=== PATIENT | female | born 1970 | race Caucasian/White ===

== ENCOUNTER 2017-01-30 08:53 | Outpatient (CLI) | payer BC ==
--- NOTE | 2017-01-31 14:57 | Mammography Report ---
DIGITAL SCREENING MAMMOGRAM: 01/30/2017 CLINICAL INDICATION: A 46-year-old with history of benign left breast biopsy for screening. COMPARISON: 08/2011 TECHNIQUE: Routine CC and MLO projections were obtained of the breasts as well as bilateral laterall y exaggerated craniocaudal views. FINDINGS: The breasts again demonstrate heterogeneously dense fibroglandular parenchyma bilaterally. Post-biopsy changes in the left breast are stable. Punctate, typically benign calcifications are p resent. No suspicious masses, clustered microcalcifications, or regions of architectural distortion are identified. IMPRESSION: BENIGN FINDINGS. RECOMMENDATION: Routine annual screening unless otherwise clinically indicated. BIRADS CATEGORY 2 - BENIGN FINDINGS. STANDARD QUALIFYING STATEMENTS 1. This examination was reviewed with the aid of Computer-Aided Detection (CAD). 2. A negative or benign imaging report should not delay biopsy if clinically suspicious findings are present. Consider surgical consultation if warranted. More than 5% of cancers are not identified by i maging. 3. Dense breasts may obscure an underlying neoplasm. JOB #: [id number] EXT JOB #:[id number]
== END 2017-01-30 08:54 | disposition home or self-care (01) ==
LOC: DI.N 08:53
PROVIDERS: ATTEND Internal Medicine
DX: Z12.31 Encounter for screening mammogram for malignant neoplasm of breast (principal)
CPT/HCPCS: 77067

== ENCOUNTER 2018-07-02 09:33 | Emergency (ER) | payer OTHER, BC ==
[2018-07-02] MEDS ORDERED: ONDANSETRON ODT 4 MG TABLET TL STA (10:38)
--- NOTE | 2018-07-02 10:45 | ED Physician Documentation ---
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 She complains of pain at the base of her neck, and has had nausea and dry heaves. She reports global headache. Her nausea and headache are worse with movement. She denies numbness or weakness. She reports a history of a similar episode years ago, also by getting hit in the neck with a soccer ball. She denies any other injuries. Review of Systems Constitutional: denies: Fever Eyes: denies: Decreased vision Ears: denies: Tinnitus/ringing Nose: denies: Congestion Throat: denies: Sore throat Cardiac: denies: Chest pain / pressure Respiratory: denies: Dyspnea, Cough GI: reports: Nausea, Vomiting (dry heaves). denies: Abdominal Pain : denies: Dysuria, Incontinent Skin: denies: Rash, Abrasion (s) Musculoskeletal: reports: Neck pain. denies: Extremity pain Neurologic: reports: Headache. denies: Focal weakness, Numbness PD PAST MEDICAL HISTORY - Past Medical History Past Medical History: Yes Cardiovascular: None Respiratory: Other Neuro: None, Head injury Endocrine/Autoimmune: None GI: None WHITESMITH: None : None HEENT: None Psych: None Musculoskeletal: None Derm: None - Past Surgical History Past Surgical History: Yes /WHITESMITH: Hysterectomy HEENT: Tonsil/Adenoidectomy - Present Medications Home Medications: Ambulatory Orders Medication Instructions Recorded Confirmed No Known Home Medications 07/02/18 07/02/18 - Allergies Allergies/Adverse Reactions: Allergies Allergy/AdvReac Type Severity Reaction Status Date / Time No Known Drug Allergies Allergy Verified 07/02/18 09:40 - Social History Does the pt smoke?: No Smoking Status: Never smoker Does the pt drink ETOH?: Yes ETOH Use: Wine Does the pt have substance abuse?: No - Immunizations Immunizations are current?: No Immunizations: TDAP >10years/unknown - POLST Patient has POLST: No PD ED PE NORMAL - Vitals Vital signs reviewed: Yes (normal) - General General: Alert and oriented X 3, Well developed/nourished - HEENT HEENT: Atraumatic, PERRL, EOMI, Ears normal, Pharynx benign - Neck Neck: No bony TTP, Other (There is tenderness to palpation in the paracervical musculature bilaterally, more in the lower cervical area. No tenderness to palpation along the spinous processes.) - Cardiac Cardiac: RRR, No murmur - Respiratory Respiratory: No respiratory distress, Clear bilaterally - Abdomen Abdomen: Soft, Non tender - Back Back: No CVA TTP, No spinal TTP - Derm Derm: No rash - Extremities Extremities: No edema, No calf tenderness / cord - Neuro Neuro: Alert and oriented X 3, No motor deficit, No sensory deficit Results - Vitals Vitals: Vital Signs - 24 hr 07/02/18 07/02/18 09:38 12:16 Temperature 36.4 C L 36.7 C Heart Rate 57 L 61 Respiratory 15 12 Rate Blood Pressure 131/68 H 114/52 L O2 Saturation 100 99 Oxygen O2 Source Room air PD MEDICAL DECISION MAKING - ED course Complexity details: reviewed results, re-evaluated patient, considered differential, d/w patient, other (An L&I form was completed.) ED course: The patient's presentation is significant for contusion to the neck, with associated headache and neck pain. CT scans of the head and cervical spine reveal no intracranial or bony abnormality. Treatment in the emergency department included administration of ibuprofen 800 mg orally, and Zofran 4 mg sublingually. This relieved the patient's nausea, and improved her headache. I discussed with her the expected course of injury, symptomatic treatment and outpatient follow-up, as well as potentially worrisome signs or symptoms that should prompt reevaluation in the emergency department. An L&I form was completed. Departure - Departure Disposition: 01 Home, Self Care Clinical Impression: Neck contusion Qualifiers: Encounter type: initial encounter Qualified Code(s): S10.93XA - Contusion of unspecified part of neck, initial encounter Headache Qualifiers: Headache type: post-traumatic Headache chronicity pattern: acute headache Condition: Stable Instructions: ED Sprain Strain Neck Follow-Up: Svetlana Galarza PA-C [Primary Care Provider] - Comments: You can take ibuprofen, up to 800 mg 3 times daily. Guide to activity level. Follow-up with your primary physician within 1 to 2 weeks. Call to schedule an appointment. Return to the emerge department if you develop increasing neck pain, increasing headache, persistent vomiting, or otherwise worsening symptoms. Forms: Activity restrictions Discharge Date/Time: 07/02/18 12:20
--- NOTE | 2018-07-02 11:49 | CT Report ---
Reason: Head injury with nausea/vomiting Procedure Date: 07/02/2018 Accession Number: [id number] / [id number] Procedure: CT - HEAD WO CPT Code: FULL RESULT: EXAM: CT HEAD. CT SCAN OF THE CERVICAL SPINE. EXAM DATE: 07/02/2018 11:32 AM. CLINICAL HISTORY: Head injury with nausea/vomiting. COMPARISON: CERVICAL SPINE W/O 07/02/2018 11:26 AM. TECHNIQUE: Noncontrast axial sections through the head and cervical spine. Reformats: Sagittal and coronal of the head, coronal and sagittal of the cervical spine. In accordance with CT protocol optimization, one or more of the following dose reduction techniques were utilized for this exam: automated exposure control, adjustment of mA and/or KV based on patient size, or use of iterative reconstructive technique. FINDINGS CT HEAD: Parenchyma: No intraparenchymal hemorrhage. No evidence of mass, midline shift. Gilbert-white differentiation is distinct. Extraaxial Spaces: Normal for age. No subdural or epidural collections identified. Ventricles: Normal in size and position. Sinuses and orbits: Imaged paranasal sinuses, orbits, and mastoids show no significant abnormality. Bones: No evidence of fracture or calvarial defect. Other: None. FINDINGS CT CERVICAL SPINE: Alignment: Normal. No scoliosis or spondylolisthesis. Bones: No fracture or bone lesion. Interspace Levels/Facets: C1-C2: Unremarkable. C2-C3: Unremarkable. C3-C4: Unremarkable. C4-C5: Unremarkable. C5-C6: Mild loss of disk space height with endplate spurring. C6-C7: Unremarkable. C7-T1: Unremarkable. Spinal Canal: Normal. Musculature: Normal. No fatty atrophy. Other: The paravertebral and prevertebral soft tissues are unremarkable. The lung apices demonstrates minimal biapical scarring. IMPRESSION: Head CT: Negative. Cervical Spine CT: Negative. RADIA
--- NOTE | 2018-07-02 11:50 | CT Report ---
Reason: Neck injury in gym class. Procedure Date: 07/02/2018 Accession Number: [id number] / [id number] Procedure: CT - CERVICAL SPINE WO CPT Code: FULL RESULT: EXAM: CT HEAD. CT SCAN OF THE CERVICAL SPINE. EXAM DATE: 07/02/2018 11:32 AM. CLINICAL HISTORY: Head injury with nausea/vomiting. COMPARISON: CERVICAL SPINE W/O 07/02/2018 11:26 AM. TECHNIQUE: Noncontrast axial sections through the head and cervical spine. Reformats: Sagittal and coronal of the head, coronal and sagittal of the cervical spine. In accordance with CT protocol optimization, one or more of the following dose reduction techniques were utilized for this exam: automated exposure control, adjustment of mA and/or KV based on patient size, or use of iterative reconstructive technique. FINDINGS CT HEAD: Parenchyma: No intraparenchymal hemorrhage. No evidence of mass, midline shift. Gilbert-white differentiation is distinct. Extraaxial Spaces: Normal for age. No subdural or epidural collections identified. Ventricles: Normal in size and position. Sinuses and orbits: Imaged paranasal sinuses, orbits, and mastoids show no significant abnormality. Bones: No evidence of fracture or calvarial defect. Other: None. FINDINGS CT CERVICAL SPINE: Alignment: Normal. No scoliosis or spondylolisthesis. Bones: No fracture or bone lesion. Interspace Levels/Facets: C1-C2: Unremarkable. C2-C3: Unremarkable. C3-C4: Unremarkable. C4-C5: Unremarkable. C5-C6: Mild loss of disk space height with endplate spurring. C6-C7: Unremarkable. C7-T1: Unremarkable. Spinal Canal: Normal. Musculature: Normal. No fatty atrophy. Other: The paravertebral and prevertebral soft tissues are unremarkable. The lung apices demonstrates minimal biapical scarring. IMPRESSION: Head CT: Negative. Cervical Spine CT: Negative. RADIA
[2018-07-02] MEDS ORDERED: IBUPROFEN 800 MG TABLET PO STA (11:56)
[2018-07-02 12:17] VITALS: BP 114/52
== END 2018-07-02 12:20 | disposition home or self-care (01) ==
LOC: ED 09:33
DX: S10.83XA Contusion of other specified part of neck, initial encounter (principal); W21.02XA Struck by soccer ball, initial encounter; Y93.89 Activity, other specified; Y92.219 Unspecified school as the place of occurrence of the external cause; Y99.0 Civilian activity done for income or pay; G44.319 Acute post-traumatic headache, not intractable; R11.2 Nausea with vomiting, unspecified
CPT/HCPCS: 1040M; 70450; 72125; 99283; A9270; Q0162

== ENCOUNTER 2020-08-23 21:19 | Emergency (ER) | payer BC ==
--- OUTSIDE RECORDS SUMMARY | 2020-08-23 21:22 | EXTERNAL MEDICAL SUMMARY RPT | Continuity of Care Document ---
:1970 Demographics Phone Unavailable Preferred Language Finnish Marital Status Unknown Anabaptist Affiliation Unknown Race Unknown Ethnic Group Unknown Author Organization [place] Address [address] [phone] Phone Care Team Providers Name Role Phone MD Unavailable Unavailable Allergies Encounters Medications date description facility 20200823 CELECOXIB [facility] All 20200823 SULFAMETHOXAZOLE-TRIMETHOPRIM All 20200823 MELOXICAM All 20200823 SULFAMETHOXAZOLE-TRIMETHOPRIM All 20200823 MELOXICAM All 20200823 CELECOXIB CAP[facility] All Problems date description facility 20200823 Tobacco smoking status [facility] All 20200823 Never smoker All 20200823 Details of drug misuse behavior All 20200823 Cellulitis, unspecified All 20200823 Cellulitis All 20200823 Cellulitis and abscess of unspecified s ites All 20200823 Alcohol use All Results Vital Signs date measurement value source 20200823 weight_standard 156.4 lb 20200823 weight_metric 70.94 kg 20200823 temperature_standard 97.3 F 20200823 temperature_metric 36.28 C 20200823 respiration_rate 14 /min 20200823 height_standard 70 in 20200823 height_metric 177.8 cm 20200823 heart_rate 67 /min 20200823 BP_systolic 119 mm[Hg] 20200823 BP_diastolic 70 mm[Hg] 20200823 BMI 22.52 kg/m2
--- OUTSIDE RECORDS SUMMARY | 2020-08-23 21:52 | EXTERNAL MEDICAL SUMMARY RPT | Continuity of Care Document ---
:1970 Demographics Phone Unavailable Preferred Language Stateless Marital Status Unknown Alevism Affiliation Unknown Race Unknown Ethnic Group Unknown Author Organization [facility] Address [address] [phone] Phone Care Team Providers Name Role Phone [...]
[2020-08-23] MEDS ORDERED: LIDOCAINE 1% 2 ML VIAL MC ONE (23:08)
[2020-08-23] MEDS ORDERED: DEXAMETHASONE 10 MG/ML VIAL PO STA (23:08)
[2020-08-23] MEDS ORDERED: CHERRY SYRUP 10 ML UDC PO ONE (23:08)
[2020-08-23] MEDS ORDERED: KETOROLAC 60 MG/2 ML VIAL IM STA (23:08)
[2020-08-23] MEDS ORDERED: cefTRIAXone 1 GM VIAL IM STA (23:08)
--- NOTE | 2020-08-23 23:11 | ED Physician Documentation ---
History of Present Illness - Stated complaint Stated Complaint: L ARM INFECTION - Chief complaint Chief Complaint: Wound - History obtained from History obtained from: Patient - History of Present Illness Timing: Yesterday - Additonal information Additional information: 49-year-old female stung by bee yesterday in her left arm. She has had swelling and erythema that has advanced since that time and she went in to see her urgent care today and they placed her on some Septra they lila some lines that 530 tonight she has had some progression past those lines and she is having worse pain and she is coming to the emerge department for evaluation. She has had some nausea she is not had vomiting she had some diarrhea and she denies any chest pain or cough. She has had intermittent chills. Review of Systems Constitutional: reports: Chills. denies: Fever Eyes: denies: Decreased vision Ears: denies: Ear pain Nose: denies: Congestion Throat: denies: Sore throat Cardiac: reports: Palpitations. denies: Chest pain / pressure Respiratory: denies: Dyspnea, Cough GI: reports: Nausea, Diarrhea. denies: Abdominal Pain, Vomiting : denies: Dysuria, Frequency Skin: reports: Rash Musculoskeletal: reports: Extremity pain, Extremity swelling. 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: Hysterectomy HEENT: Tonsil/Adenoidectomy - Present Medications Home Medications: Ambulatory Orders Medication Instructions Recorded Confirmed Amox/Clav 875/125 [Augmentin] 1 each PO Q12H #20 tablet 08/23/20 Celecoxib [Celebrex] 200 mg PO DAILY 08/23/20 08/23/20 Meloxicam [Mobic] 15 mg PO DAILY 08/23/20 08/23/20 Sulfamethoxazole/Trimethoprim 1 tab PO BID 08/23/20 08/23/20 [Bactrim 400-80 mg Tablet] - Allergies Allergies/Adverse Reactions: Allergies Allergy/AdvReac Type Severity Reaction Status Date / Time No Known Drug Allergies Allergy Verified 07/02/18 09:40 - Social History Does the pt smoke?: No Smoking Status: Never smoker Does the pt drink ETOH?: Yes Does the pt have substance abuse?: No - Immunizations Immunizations are current?: No Immunizations: TDAP >10years/unknown - POLST Patient has POLST: No PD ED PE NORMAL - Vitals Vital signs reviewed: Yes (normal) - General General: Alert and oriented X 3, No acute distress, Well developed/nourished - HEENT HEENT: Atraumatic, PERRL, EOMI - Neck Neck: Supple, no meningeal sign, No bony TTP - Respiratory Respiratory: No respiratory distress - Derm Derm: Normal color, Warm and dry, Other (redness and swelling to left arm. ) - Extremities Extremities: No deformity, Other (Swelling erythema and tenderness to the left arm extends from the axilla to the elbow and there is some extension past the lines marked at 530 tonight. Of about 1 cm and this is faint. There is no extension cephalad from mcgarry placed yesterday by the patient.) - Neuro Neuro: Alert and oriented X 3, bolt man 2-12 intact, No motor deficit, No sensory deficit, Normal speech Eye Opening: Spontaneous Motor: Obeys Commands Verbal: Oriented GCS Score: 15 - Psych Psych: Normal mood, Normal affect Results - Vitals Vitals: Vital Signs - 24 hr 08/23/20 08/23/20 08/23/20 21:29 21:33 23:26 Temperature 36.2 C L 36.3 C L 36.4 C L Heart Rate 71 71 79 Respiratory 15 15 16 Rate Blood Pressure 126/80 126/80 128/79 O2 Saturation 100 100 99 Oxygen O2 Source Room air PD MEDICAL DECISION MAKING - ED course Complexity details: reviewed results, re-evaluated patient, considered differential, d/w patient ED course: 49-year-old female with a bee sting cellulitis has been placed on Septra today she has had a dose and has progression of her symptoms. We will initiate IM Rocephin dexamethasone and Toradol will provide some pain relief for the patient and start her on Augmentin as well as the Septra. I have indicated the patient should she have progression overnight she will need to return to the hospital for admission for IV antibiotic. Departure - Departure Disposition: 01 Home, Self Care Clinical Impression: Bee sting reaction Qualifiers: Encounter type: initial encounter Injury intent: accidental or unintentional Qualified Code(s): T63.441A - Toxic effect of venom of bees, accidental (unintentional), initial encounter Cellulitis Qualifiers: Site of cellulitis: extremity Site of cellulitis of extremity: upper extremity Laterality: left Qualified Code(s): L03.114 - Cellulitis of left upper limb Condition: Stable Instructions: ED Infec Skin Cellulitis, ED Bite Sting Insect Local Allergic React Follow-Up: Aida Romero PA-C [Primary Care Provider] - Prescriptions: Amox/Clav 875/125 [Augmentin] 1 each PO Q12H #20 tablet Comments: Tonight it appears you have a reaction to a bee sting and an infection associated with this. Today we are administering IM antibiotic similar to having you in the hospital overnight and my recommendation is to add the Augmentin into the regimen along with the Septra. You can begin this tomorrow. If you have progression of your symptoms overnight the recommendation is to return to the emergency department for admission to the hospital for cellulitis failing outpatient management. Discharge Date/Time: 08/23/20 23:39
[2020-08-23 23:27] VITALS: BP 128/79
== END 2020-08-23 23:39 | disposition home or self-care (01) ==
LOC: ED 21:19
DX: T63.441A Toxic effect of venom of bees, accidental (unintentional), initial encounter (principal); L03.114 Cellulitis of left upper limb
CPT/HCPCS: 96372; 99283; 99284; A9270

== ENCOUNTER 2020-08-29 15:17 | Emergency (ER) | payer BC ==
[2020-08-29] MEDS ORDERED: CHERRY SYRUP 10 ML UDC PO ONE (15:53)
[2020-08-29] MEDS ORDERED: DEXAMETHASONE 10 MG/ML VIAL PO STA (15:53)
--- NOTE | 2020-08-29 15:56 | ED Physician Documentation ---
History of Present Illness - Stated complaint Stated Complaint: LT ARM SWELLING - Chief complaint Chief Complaint: Allergic Rx - History obtained from History obtained from: Patient - Additonal information Additional information: 49-year-old woman with recent ED visit for bee sting that became infected, currently on Augmentin, presents with persistent redness. She states that it has improved but that it is still painful, warm and erythematous. Denies fevers. Also with tingling to the fingers but no motor deficits. 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 : None HEENT: None Psych: None Musculoskeletal: None Derm: None - Past Surgical History Past Surgical History: Yes /CIGARETTE STAMPER: Hysterectomy HEENT: Tonsil/Adenoidectomy - Present Medications Home Medications: Ambulatory Orders Medication Instructions Recorded Confirmed Amox/Clav 875/125 [Augmentin] 1 each PO Q12H #20 tablet 08/23/20 Celecoxib [Celebrex] 200 mg PO DAILY 08/23/20 08/23/20 Meloxicam [Mobic] 15 mg PO DAILY 08/23/20 08/23/20 Sulfamethoxazole/Trimethoprim 1 tab PO BID 08/23/20 08/23/20 [Bactrim 400-80 mg Tablet] Sulfamethoxazole/Trimethoprim 1 each PO BID #20 tablet 08/29/20 [Bactrim 400-80 mg Tablet] - Allergies Allergies/Adverse Reactions: Allergies Allergy/AdvReac Type Severity Reaction Status Date / Time No Known Drug Allergies Allergy Verified 08/29/20 15:23 - Social History Does the pt smoke?: No Smoking Status: Never smoker Does the pt drink ETOH?: Yes Does the pt have substance abuse?: No - Immunizations Immunizations are current?: No Immunizations: TDAP >10years/unknown - POLST Patient has POLST: No PD ED PE NORMAL - Vitals Vital signs reviewed: Yes - General General: Alert and oriented X 3, No acute distress, Well developed/nourished - HEENT HEENT: Atraumatic, PERRL, EOMI - Neck Neck: Supple, no meningeal sign - Derm Derm: Normal color, Other (Erythema to left anterior arm. Compartments soft. Palpable warmth. Discomfort to palpation. 2+ bilateral radial pulses. Normal sensation and capillary refill. Normal strength) Results - Vitals Vitals: Vital Signs - 24 hr 08/29/20 15:21 Temperature 36.2 C L Heart Rate 72 Respiratory 16 Rate Blood Pressure 139/66 H O2 Saturation 99 Oxygen O2 Source Room air PD MEDICAL DECISION MAKING - ED course ED course: 49-year-old woman presented for evaluation after being given Augmentin for infected bee sting. She has had some improvement but the erythema is still there, therefore I am switching her to an antibiotic that covers MRSA. Strict return precautions given. She will follow up in 48 hours for wound check if it is not improved. Departure - Departure Disposition: 01 Home, Self Care Clinical Impression: Cellulitis Condition: Good Instructions: Cellulitis Dc Prescriptions: Sulfamethoxazole/Trimethoprim [Bactrim 400-80 mg Tablet] 1 each PO BID #20 tablet Comments: You are seen in the emergency department for persistent redness in the arm after a bug bite. I am switching her antibiotics to Bactrim, which covers MRSA. Please return to the emergency department if you do not have improvement within 48 hours. Return earlier if you have any new or worsening symptoms or other concerns.
[2020-08-29 16:07] VITALS: BP 120/76
== END 2020-08-29 16:07 | disposition home or self-care (01) ==
LOC: ED 15:17
DX: T63.441A Toxic effect of venom of bees, accidental (unintentional), initial encounter (principal); L03.114 Cellulitis of left upper limb
CPT/HCPCS: 99282; 99283; A9270

== ENCOUNTER → 2022-01-10 | Outpatient (CLI) | payer OTHER | END | disposition short-term general hospital (02) | LOC: EMS 12:38 | DX: M54.2 Cervicalgia (principal); R51.9 Headache, unspecified; M54.6 Pain in thoracic spine; M54.50 Low back pain, unspecified; R42 Dizziness and giddiness; R11.0 Nausea; W21.05XA Struck by basketball, initial encounter; Y92.212 Middle school as the place of occurrence of the external cause; Y99.0 Civilian activity done for income or pay | CPT/HCPCS: A0425; A0427 ==

== ENCOUNTER 2023-07-05 17:15 | Outpatient (CLI) | payer BC ==
[2023-07-05 20:23] LABS: BASOPHILS % (AUTO) 0.7 %; EOSINOPHILS # (AUTO) 0.1 10^3/uL (0.0-0.7); EOSINOPHILS % (AUTO) 2.4 %; HCT - HEMATOCRIT 41.7 % (37.0-47.0); HGB - HEMOGLOBIN 13.4 g/dL (12.0-16.0); LYMPHOCYTES # (AUTO) 1.6 10^3/uL (1.5-3.5); MEAN CORPUSCULAR HEMOGLOBIN 31.2 pg (27.0-31.0); MEAN CORPUSCULAR HGB CONC 32.1 g/dL (32.0-36.0); MEAN CORPUSCULAR VOLUME 97.2 fL (81.0-99.0); MEAN PLATELET VOLUME 9.9 fL (7.9-10.8); MONOCYTES # (AUTO) 0.4 10^3/uL (0.0-1.0); MONOCYTES % (AUTO) 7.3 %; NEUTROPHILS # (AUTO) 3.6 10^3/uL (1.5-6.6); NEUTROPHILS % (AUTO) 61.4 %; PLT - PLATELET COUNT 280 10^3/uL (130-450); RED BLOOD COUNT 4.29 10^6/uL (4.20-5.40); RED CELL DISTRIBUTION WIDTH 12.3 % (12.0-15.0); WHITE BLOOD COUNT 5.9 x10^3/uL (4.8-10.8)
[2023-07-05 20:39] LABS: ALBUMIN 4.7 g/dL (3.2-5.5); BILIRUBIN,TOTAL 0.6 mg/dL (0.2-1.0); CALCIUM 10.1 mg/dL (8.5-10.3); CREATININE 0.8 mg/dL (0.6-1.3); POTASSIUM 3.8 mmol/L (3.5-4.5); TOTAL PROTEIN 7.1 g/dL (6.4-8.9)
== END 2023-07-05 17:30 | disposition home or self-care (01) ==
LOC: LAB.N 17:15
PROVIDERS: ATTEND Physician Assistant
DX: R10.9 Unspecified abdominal pain (principal)
CPT/HCPCS: 36415; 80053; 83690; 85025

== ENCOUNTER 2023-10-02 10:55 | Outpatient (CLI) | payer BC | END 2023-10-02 10:56 | disposition home or self-care (01) | LOC: RT 10:55 | PROVIDERS: ATTEND Internal Medicine | DX: J45.909 Unspecified asthma, uncomplicated (principal) | CPT/HCPCS: 94010; 94729 ==